=== PATIENT | male | born 1955 | race Caucasian/White ===

== ENCOUNTER 2017-03-18 09:37 | Outpatient (CLI) | payer OTHER ==
--- NOTE | 2017-03-18 11:37 | MRI Report ---
EXAM: MRI LUMBAR SPINE WITHOUT CONTRAST EXAM DATE: 03/18/2017 10:15 AM. CLINICAL HISTORY: Paresthesias in both feet. COMPARISON: None. TECHNIQUE: Multiplanar, multisequence T1-weighted and fluid-sensitive sequences of the lumbar spine f rom T12 to S1 without contrast. Other: None. FINDINGS: Spinal Cord: The conus terminates at L1. The conus medullaris and cauda equina are unremarkable. Alignment: Minimal degenerative retrolisthesis of L1 on L2. 4-5 mm L3 on L4 anterolisthesis secondary to bilateral L3 spondylolysis. 7-8 mm L4 on L5 spondylolisthesis secondary to bilateral L4 spondylolysis. Bone Marrow: Five vci-uut-hgcpiuq lumbar vertebral bodies are assumed. Degenerative endplate signal c hanges at multiple levels, most severe at L4-L5. Also notable at L3-L4. Disk Levels/Facets: T12-L1: Mild degenerative changes. No significant stenosis. L1-L2: Moderate degenerative disk disease and facet arthropathy. Broad-based bulge. Anterior marginal spurring. Mild stenosis of the central canal and foramina. L2-L3: No significant disk space narrowing. No disk herniation or significant stenosis. Uleu-qw-zhwbr ate right and moderate left-sided facet arthropathy. L3-L4: Moderate to severe degenerative disk disease and facet arthropathy. Hypertrophic degenerative changes are present left greater than right associated with the facets and chronic-appearing L3 pars defects. Prominent broad-based disk bulge with extension laterally with spurring into both foramina, which show moderate to severe deformity and stenosis. The central canal is patent. L4-L5: Severe degenerative disk disease. Moderate facet arthropathy. Prominent broad-based disk bulge with extension laterally into both foramina. Hypertrophic degenerative changes are seen associated w ith the chronic-appearing L4 pars defects. Patent central canal. Foraminal stenosis is severe on the right and moderate on the left. L5-S1: Mild degenerative disk disease. Minimal facet arthropathy. No focal disk herniation. Patent ce ntral canal and right foramen. Minimal foraminal narrowing on the left. Musculature: Mild diffuse posterior paraspinal muscle fatty atrophy. Other: Incompletely visualized abdominal aortic aneurysm measuring up to 7 cm transverse at the L3-L4 level. Incompletely visualized mildly expansile rounded T2 hyperintense lesions of the right kidney, possibl y cysts, but incompletely characterized on this study. IMPRESSION: 1. Abdominal aortic aneurysm up to 7 cm transverse. 2. Prominent chronic multilevel degenerative lumbar spinal spondylosis, most severe at the L3-L4 and L4-L5 levels. 3. No high-grade lumbar central canal stenosis. 4. Potentially significant degenerative foraminal stenosis bilaterally at L3-L4 and right worse than left at L4-L5. 5. In addition to chronic degenerative changes, spondylolisthesis from spondylolysis is present at th e L3-L4 and L4-L5 levels. 6. T2 hyperintense expansile kidney lesions on the right, potentially cysts, but incompletely charact erized with this study. As clinically warranted, this could be further characterized with other suppl emental imaging such as CT or renal ultrasound. Findings were communicated by telephone to the registered nurse Bossman, at 11 AM 03/18/2017. Comment: The following findings are so common in adults without low back pain that while we report th eir presence, they must be interpreted with caution and in the context of the clinical situation. (Re trace Gerard et al, Spine 2001) Prevalence of findings in patients without low back pain: Disk degeneration (any evidence): 92% Disk desiccation/T2 signal loss: 83% Disk height loss: 56% Disk bulge: 64% Disk protrusion: 32% Annular tear/high intensity zone: 38% [facility] Referring Provider Line: [phone] SITE ID: [id number]
== END 2017-03-18 09:38 | disposition home or self-care (01) ==
LOC: DI 09:37
PROVIDERS: ATTEND Nurse Practitioner Family
DX: M51.36 Other intervertebral disc degeneration, lumbar region (principal); M47.896 Other spondylosis, lumbar region; M43.16 Spondylolisthesis, lumbar region; I71.4 Abdominal aortic aneurysm, without rupture
CPT/HCPCS: 72148

== ENCOUNTER 2020-09-19 12:53 | Outpatient (CLI) | payer OTHER ==
[2020-09-19 13:42] VITALS: BP 119/75
--- NOTE | 2020-09-19 13:42 | SLEEP CARE CONSULTATION ---
Information from patient questionnaire entered by Kassie Garrison. I have reviewed and concur with the information entered by Kassie Garrison. This document represents the service I personally performed and the decisions made by me, Urvashi Stout ARNP. History of Present Illness Service Date and Time: 09/19/2020 1253 Reason for Visit: New patient, Previously diagnosed sleep apnea, sleep apnea on CPAP therapy Chief Complaint: reports: Other (Update supplies) Usual bedtime: 9 Time it takes to fall asleep: 10-15 Toss, Turn, or Twitch while sleeping: Yes Recalls having dreams: Yes Usually gets out of bed at: 6 Feels refreshed in the morning: Yes Morning headache: No Sleepy or fatigued during the day: No Ever fallen asleep while driving: No Takes day naps: Yes Dreams during day naps: No Prior sleep studies: Yes Year and Where: 2011 [facility] Additional HPI information: OLGA LIDIA PEREZ was diagnosed to have very severe, AHI 71.1, obstructive sleep apnea-hypopnea syndrome in 2011 at [facility]. He comes in to re-establish care for his CPAP therapy. He has been using his CPAP since 2012 nightly. He needs to be able to get supplies. - Parasomnia Symptoms Ever been unable to move upon waking from sleep: No Walks in sleep: No Talks in sleep: No Ever acted out dreams in sleep: No Ever felt weak in the knees when startled or emotional: No Bothered by creepy, crawly, restless sensations in legs: Yes Problems with memory or concentration: No CPAP Compliance Data - Data Reviewed with Patient Average duration of nightly device use: 7 hours 9 minutes Compliance rate %: 94.4 Current pressure setting (cmH2O): 14 Humidity settin Heated hose settin Average residual AHI: 7.3 Central apnea: 0.4 Obstructive apnea: 3.4 Hypopnea: 3.5 Average large leak: 14 minutes 18 seconds Compliance data discussion: He gets his supplies online. He uses a full face mask, ResMed Quattro Fx size large. He thinks an extra large may work better. Subjective Patient concerns: reports: air blowing in eyes (gets wet eyes in morning), mask leak noise. denies: aerophagia, mask discomfort, condensation in mask/hose, nasal congestion, dry mouth, nose, throat, epistaxis, other Observed to snore while using device: No Current pressure setting perceived as: comfortable On therapy, patient: reports: sleeping better, awakening more refreshed, being more awake and alert during the day, more rested overall. denies: drowsiness while driving Initial [place] Sleepiness Scale score: 3 (in 2020) Past Medical History Past Medical History: reports: Hypertension, Arthritis Social History The patient's occupation is a retiree. Patient is and lives in [place]. Have you smoked in the past 12 months: No Cigarettes per day (20/pack): 20 Years of smokin Quit date: 2016 Smoking Pack Years: 46.0 Alcohol use: No Caffeine use: Yes Caffeine amount and frequency: 1 cup tea, twice a day Family History Family history of sleep disordered breathing: No Allergies and Home Medications Drug allergies reviewed: Yes (NKDA) Home medication list reviewed: Yes Allergy and home medication list: Temisartan Atorvastatin Amlodipine Cymbalta Gabapentin Aspirin Multivitamin Review of Systems Cardiovascular: reports: high blood pressure Musculoskeletal: reports: joint pain (stiffness), back pain Physical Exam Blood Pressure: 119/75 Cuff size: wrist Heart Rate: 88 O2 Saturation: 92 Height: 6 ft 4 in Weight: 263 lb Body Mass Index: 32.0 BMI Classification: Obese Impression and Plan 1. Obstructive Sleep Apnea-Hypopnea Syndrome, very severe, with good treatment compliance and good apnea control. On CPAP therapy, the patient has better sleep quality and is more rested overall. The patients pressure will be changed to autoCPAP 15 cmH20 for elevation of residual AHI. Patient advised to contact me if pressure change is uncomfortable so that it can be adjusted. Goals for apnea control discussed. Patient would like to replace his old machine that is over 8 years old (it is his original machine) and update supplies. I will have my medical records coordinator inform of DME options. A DWO prescription will then be made. Patient advised to contact this office if further supply problems. Compliance guidelines for new device and follow up discussed. Patient's apnea severity and rationale for treatment to reduce apnea, improve sleep quality and reduce cardiovascular and cerebrovascular events was reviewed. I also reviewed the benefit of consistent device use of CPAP for hypertension. * Update machine * Transfer DME * Change auto CPAP pressure to 15 cmH2O * Notify me if snoring with mask or feeling that the pressure is too much or too little * Attempt to lose weight * Call this office if any problems using CPAP * Return for follow up one month after getting new machine, or sooner if concerns arise Counseling Topics: Spare mask, Weight loss health impact Visit Type: In Office Time Spent with Patient (minutes): 30 Provider Statement: I spent 100% of the Face to Face Visit with the patient with greater than 50% spent counseling the patient and coordination of care.
== END 2020-09-19 12:54 | disposition home or self-care (01) ==
LOC: SC 12:53
PROVIDERS: ATTEND Nurse Practitioner Family
DX: G47.33 Obstructive sleep apnea (adult) (pediatric) (principal); E66.9 Obesity, unspecified; Z68.32 Body mass index [BMI] 32.0-32.9, adult; Z87.891 Personal history of nicotine dependence
CPT/HCPCS: 99203; 99212

== ENCOUNTER 2020-11-13 13:12 | Outpatient (CLI) | payer OTHER ==
--- NOTE | 2020-11-13 13:38 | SLEEP CARE CONSULTATION ---
Information from patient questionnaire entered by Elana Maynard. I have reviewed and concur with the information entered by Elana Maynard. This document represents the service I personally performed and the decisions made by , Urvashi Stout ARNP. History of Present Illness Service Date and Time: 11/13/2020 1312 Previous diagnosis: Very Severe, Obstructive Sleep Apnea-Hypopnea Syndrome AHI: 71.1 (in 2011) Reason for follow up: first compliance after device update Equipment type: CPAP Equipment obtained from: Other ([facility]; getting supplies as needed) Mask style: Full face Backup mask available: Yes (old mask) Last cushion change: 1 week Prior sleep studies: Yes Year and Where: 2011 - [facility] Type of Sleep Study: Polysomnography HPI additional information: OLGA LIDIA PEREZ was diagnosed to have very severe, AHI 71.1, obstructive sleep apnea-hypopnea syndrome and returned today for CPAP therapy first compliance after updating device follow-up. CPAP Compliance Data - Data Reviewed with Patient Average duration of nightly device use: 7 hr 30 min Compliance rate %: 100 Current pressure setting (cmH2O): 16 Humidity settin Heated hose settin Average residual AHI: 3.0 Average large leak: 6 sec Subjective Patient concerns: denies: aerophagia, mask discomfort, air blowing in eyes, mask leak noise, condensation in mask/hose, nasal congestion, dry mouth, nose, throat, epistaxis, other Observed to snore while using device: No Current pressure setting perceived as: comfortable On therapy, patient: reports: sleeping better, awakening more refreshed, being more awake and alert during the day, more rested overall. denies: drowsiness while driving Initial [place] Sleepiness Scale score: 6 (in 2012) Current [place] Sleepiness Scale score: 6 Allergies and Home Medications Home medication list reviewed: Yes (no changes) Review of Systems Review of systems same as previous: Yes (no changes) Physical Exam Heart Rate: 82 O2 Saturation: 96 Height: 6 ft 4 in Weight: 265 lb Body Mass Index: 32.2 BMI Classification: Obese Impression and Plan 1. Obstructive Sleep Apnea-Hypopnea Syndrome, very severe, with excellent treatment compliance and good apnea control. On CPAP therapy, the patient has better sleep quality and is more rested overall. Patient is very satisfied with new CPAP and CPAP therapy. He denies any issues with CPAP mask or machine use. He states intention to continue CPAP use long-term. I advised her reports weight loss this year. Patient's apnea severity and rationale for treatment to reduce apnea, improve sleep quality and reduce cardiovascular and cerebrovascular events was reviewed. I also reviewed the benefit of consistent device use of CPAP for hypertension. * Continue auto CPAP pressure at 16 cmH2O * Notify me if snoring with mask or feeling that the pressure is too much or too little * Attempt to lose weight * Call this office if any problems using CPAP * Return for follow up in 1 year, or sooner if concerns arise Counseling Topics: Spare mask, Weight loss health impact Visit Type: In Office Time Spent with Patient (minutes): 10 Provider Statement: I spent 100% of the Face to Face Visit with the patient with greater than 50% spent counseling the patient and coordination of care.
== END 2020-11-13 13:13 | disposition home or self-care (01) ==
LOC: SC 13:12
PROVIDERS: ATTEND Nurse Practitioner Family
DX: G47.33 Obstructive sleep apnea (adult) (pediatric) (principal); E66.9 Obesity, unspecified; Z68.32 Body mass index [BMI] 32.0-32.9, adult
CPT/HCPCS: 99212

== ENCOUNTER 2021-01-08 10:09 | Emergency (ER) | payer OTHER ==
[2021-01-08 11:13] LABS: BASOPHILS # (AUTO) 0.1 10^3/uL (0.0-0.1); BASOPHILS % (AUTO) 1.3 %; EOSINOPHILS # (AUTO) 0.4 10^3/uL (0.0-0.7); EOSINOPHILS % (AUTO) 4.6 %; HCT - HEMATOCRIT 40.7 % (42.0-52.0); HGB - HEMOGLOBIN 13.5 g/dL (14.0-18.0); LYMPHOCYTES # (AUTO) 2.2 10^3/uL (1.5-3.5); MEAN CORPUSCULAR HEMOGLOBIN 33.8 pg (27.0-31.0); MEAN CORPUSCULAR HGB CONC 33.2 g/dL (32.0-36.0); MEAN CORPUSCULAR VOLUME 101.8 fL (80.0-94.0); MEAN PLATELET VOLUME 10.9 fL (7.4-11.4); MONOCYTES # (AUTO) 0.7 10^3/uL (0.0-1.0); MONOCYTES % (AUTO) 9.3 %; NEUTROPHILS # (AUTO) 4.2 10^3/uL (1.5-6.6); NEUTROPHILS % (AUTO) 55.5 %; PLT - PLATELET COUNT 198 10^3/uL (130-450); WHITE BLOOD COUNT 7.6 x10^3/uL (4.8-10.8)
[2021-01-08 11:25] LABS: ALBUMIN 4.3 g/dL (3.2-5.5); ALBUMIN/GLOBULIN RATIO 1.3 (1.0-2.2); BILIRUBIN,TOTAL 0.5 mg/dL (0.2-1.0); CALCIUM 9.5 mg/dL (8.5-10.3); CREATININE 1.5 mg/dL (0.6-1.2); POTASSIUM 4.5 mmol/L (3.5-5.0); TOTAL PROTEIN 7.7 g/dL (6.7-8.2)
[2021-01-08 12:17] LABS: CLARITY,URINE CLEAR (CLEAR)
[2021-01-08 12:18] LABS: BILIRUBIN,URINE NEGATIVE (NEGATIVE); GLUCOSE, URINE (UA) NEGATIVE (NEGATIVE); KETONES,URINE (UA) NEGATIVE (NEGATIVE); LEUKOCYTE ESTERASE, URINE NEGATIVE (NEGATIVE); NITRITE,URINE NEGATIVE (NEGATIVE); OCCULT BLOOD,URINE SMALL (NEGATIVE); PH,URINE 6.5 PH (5.0-7.5); PROTEIN,URINE NEGATIVE (NEGATIVE); UROBILINOGEN,URINE 0.2 (NORMAL) E.U./dL (NORMAL)
[2021-01-08 12:29] LABS: BACTERIA,URINE Rare /HPF (None Seen); RBC,URINE 0-5 /HPF (0-5); SQUAMOUS EPITHELIAL CELL,UR RARE Squamous (<= Few); WBC,URINE 0-3 /HPF (0-3)
--- NOTE | 2021-01-08 12:39 | ED Physician Documentation ---
History of Present Illness - Stated complaint Stated Complaint: BACK PX - Chief complaint Chief Complaint: Abd Pain - History obtained from History obtained from: Patient, Family - History of Present Illness Pain level max: 5 Pain level now: 1 - Additonal information Additional information: Patient is a 65-year-old male who presents to the emergency department with his today. He states that he has had intermittent left flank pain for the past several days. Concerned about possible kidney stone. Has seen his doctor and was told he had a "clear urinalysis". He states that the pain is a max 5 out of 10, currently 1 out of 10. He states that his doctor told him to come to the emergency department because his creatinine had gone from 1.1-1.5 on outpatient blood draw. His doctor also stated that his blood sugar was "high". No nausea or vomiting. No diarrhea. No constipation. Nothing makes it better or worse. No fevers. No chills. No coughing. Review of Systems Ten Systems: 10 systems reviewed and negative Constitutional: denies: Fever, Chills GI: denies: Vomiting, Diarrhea Skin: denies: Rash Musculoskeletal: denies: Neck pain, Back pain Neurologic: denies: Headache PD PAST MEDICAL HISTORY - Past Medical History Cardiovascular: Hypertension, High cholesterol Respiratory: Sleep apnea, CPAP use Endocrine/Autoimmune: None GI: None : None HEENT: None Psych: None Musculoskeletal: None Derm: None - Past Surgical History Past Surgical History: No - Present Medications Home Medications: Ambulatory Orders Medication Instructions Recorded Confirmed Amlodipine Besylate 10 mg PO DAILY 02/05/15 02/05/15 Aspirin [Aspir 81] 81 mg PO DAILY 02/05/15 02/05/15 Atorvastatin [Lipitor] 20 mg PO DAILY 02/05/15 02/05/15 Multivitamin [Multivitamins] 1 tab PO DAILY 02/05/15 02/05/15 lisinopriL [Lisinopril] 10 mg PO DAILY 02/05/15 02/05/15 HYDROcod/ACETAM 5/325 [[place] 5/325] 1 - 2 ea PO Q6H PRN #14 tablet 01/08/21 Ibuprofen [Motrin] 800 mg PO Q8H PRN #30 tablet 01/08/21 Ondansetron Odt [Zofran] 4 mg TL Q6H PRN #10 tablet 01/08/21 - Allergies Allergies/Adverse Reactions: Allergies Allergy/AdvReac Type Severity Reaction Status Date / Time No Known Drug Allergies Allergy Verified 02/05/15 22:39 - Social History Does the pt smoke?: Yes Smoking Status: Current every day smoker Does the pt drink ETOH?: No Does the pt have substance abuse?: No - Immunizations Immunizations are current?: Yes - POLST Patient has POLST: No PD ED PE NORMAL - Vitals Vital signs reviewed: Yes - General General: Alert and oriented X 3, No acute distress - HEENT HEENT: Moist mucous membranes - Neck Neck: Supple, no meningeal sign - Cardiac Cardiac: RRR - Respiratory Respiratory: No respiratory distress, Clear bilaterally - Abdomen Abdomen: Soft, Non tender, Non distended - Back Back: No CVA TTP, No spinal TTP - Derm Derm: Warm and dry - Extremities Extremities: No edema - Neuro Neuro: Alert and oriented X 3 - Psych Psych: Normal mood, Normal affect Results - Vitals Vitals: Vital Signs - 24 hr 01/08/21 01/08/21 01/08/21 10:22 12:26 14:00 Temperature 36.9 C Heart Rate 67 65 68 Respiratory 16 17 16 Rate Blood Pressure 132/74 H 124/81 H 125/84 H O2 Saturation 99 93 93 Oxygen O2 Source Room air - Labs Labs: Laboratory Tests 01/08/21 01/08/21 01/08/21 11:04 11:04 11:49 WBC 7.6 RBC 4.00 L Hgb 13.5 L Hct 40.7 L MCV 101.8 H MCH 33.8 H MCHC 33.2 RDW 13.0 Plt Count 198 MPV 10.9 Neut # (Auto) 4.2 Lymph # (Auto) 2.2 Maury # (Auto) 0.7 Eos # (Auto) 0.4 Baso # (Auto) 0.1 Absolute Nucleated RBC 0.00 Nucleated RBC % 0.0 Sodium 138 Potassium 4.5 Chloride 98 L Carbon Dioxide 31 Anion Gap 9.0 BUN 22 H Creatinine 1.5 H Estimated GFR (MDRD) 47 L Glucose 110 H Calcium 9.5 Total Bilirubin 0.5 AST 24 ALT 24 Alkaline Phosphatase 88 Total Protein 7.7 Albumin 4.3 Globulin 3.4 Albumin/Globulin Ratio 1.3 Lipase 24 Urine Color YELLOW Urine Clarity CLEAR Urine pH 6.5 Ur Specific [place] 1.010 Urine Protein NEGATIVE Urine Glucose (UA) NEGATIVE Urine Ketones NEGATIVE Urine Occult Blood SMALL H Urine Nitrite NEGATIVE Urine Bilirubin NEGATIVE Urine Urobilinogen 0.2 (NORMAL) Ur Leukocyte Esterase NEGATIVE Urine RBC 0-5 Urine WBC 0-3 Ur Squamous Epith Cells RARE Squamous Urine Bacteria Rare Ur Microscopic Review INDICATED Urine Culture Comments NOT INDICATED - Rads (name of study) CT abdomen pelvis Radiology: Final report received, EMP read contemporaneously, See rad report PD MEDICAL DECISION MAKING - ED course Complexity details: reviewed results, re-evaluated patient, considered differential, d/w patient, d/w family ED course: Patient is a 65-year-old male with a 5 mm left UVJ stone. Mild elevation in his creatinine. Pain well controlled here. No fevers. No evidence of UTI. No evidence of sepsis. The stone should likely pass on its own. We will have him follow-up with his doctor for further care. Patient counseled regarding signs and symptoms for which I believe and urgent re-evaluation would be necessary. Patient with good understanding of and agreement to plan and is comfortable go ing home at this time This document was made in part using voice recognition software. While efforts are made to proofread this document, sound alike and grammatical errors may occur. Patient states he has had multiple cardiac stress test and angiograms and knows about the atherosclerosis of the coronary vasculature. IMPRESSION: 1. 5 mm left UVJ stone causing mykn-su-tkbouhft left-sided hydronephrosis. 2. Mild left perinephric stranding and slightly decreased left renal enhancement which could be due to obstructive uropathy versus superimposed urinary tract infection. Recommend correlation with urinalysis data. 3. Multiple bilateral renal cysts. 4. Colonic diverticulosis without evidence of diverticulitis. 5. Atherosclerosis including the coronary vasculature. Departure - Departure Disposition: Home, Self Care Clinical Impression: Ureteral calculus, left Condition: Good Instructions: ED Stone Renal W Colic Follow-Up: KALEIGH PALMER MD [Primary Care Provider] - Prescriptions: Ibuprofen [Motrin] 800 mg PO Q8H PRN #30 tablet PRN Reason: PAIN &/OR FEVER HYDROcod/ACETAM 5/325 [[place] 5/325] 1 - 2 ea PO Q6H PRN #14 tablet PRN Reason: Pain Ondansetron Odt [Zofran] 4 mg TL Q6H PRN #10 tablet PRN Reason: Nausea / Vomiting Comments: Follow up with your doctor for further care. Make sure you are drinking plenty of water as this will help the stone pass. Return for uncontrolled pain, vomiting or fevers. Your doctor may want to refer you to a urologist as well. I am prescribing a short course of narcotic pain medication for you. These are potentially dangerous and addictive medications that should be used carefully. These medications may constipate you. Take an voww-nri-pkaleuz stool softener (docusate) twice daily with plenty of water while taking these medications. If you go 24 hours without a bowel movement, take tlyb-nkv-hfauesz miralax, per package instructions. Do not drink or drive while taking these medications. If you received narcotic or sedating medications while in the emergency department, do not drive for 24 hours. Store this medication in a safe, secure place and out of reach of children. It is a violation of federal law to give or sell this medication to another person or to use in a manner other than prescribed. The ED will not refill narcotic prescriptions, including prescriptions lost or stolen. To dispose of unwanted medications: 1. [facility] [address] in [place] has a medication drop box. They accept prescription medications (in pill form) Thursday through Thursday 9:00 a.m. to 5:00 p.m. 2. [facility] [employer] accepts prescription medications (in pill form only) for disposal year round. Call for more information. 3. Contact the [facility] for the next [facility] sponsored prescription drug collection event. , [phone], or x [phone]; CT scan results: 1. 5 mm left UVJ stone causing xzqs-xr-arrvbrbb left-sided hydronephrosis. 2. Mild left perinephric stranding and slightly decreased left renal enhancement which could be due to obstructive uropathy versus superimposed urinary tract infection. Recommend correlation with urinalysis data. 3. Multiple bilateral renal cysts. 4. Colonic diverticulosis without evidence of diverticulitis. 5. Atherosclerosis including the coronary vasculature. Discharge Date/Time: 01/08/21 14:26
[2021-01-08] MEDS ORDERED: IOPAMIDOL-300 100 ML VIAL ONE (12:44)
[2021-01-08] MEDS: SODIUM CHLORIDE 0.9% 1,000 ML IV STA ×2 (13:03)
[2021-01-08] MEDS: IOPAMIDOL-300 100 ML VIAL IVP ONE (13:38)
--- NOTE | 2021-01-08 13:44 | CT Report ---
PROCEDURE: Abdomen/Pelvis W INDICATIONS: LLQ abd pain CONTRAST: IV CONTRAST: Isovue 300 ml: 100 PO CONTRAST: *NO PO CONTRAST TECHNIQUE: After the administration of intravenous contrast, 5 mm thick sections acquired from the diaphragms to the symphysis. 5 mm thick coronal and sagittal reformats were acquired. For radiation dose reducti on, the following was used: automated exposure control, adjustment of mA and/or kV according to meera ent size. COMPARISON: None. FINDINGS: Image quality: Excellent. ABDOMEN: Lung bases: Atelectasis in the left lung base. Heart size is normal. Atherosclerotic calcifications n oted in the visualized coronary vascular tree. Solid organs: Liver and spleen are normal in size and enhancement. Gallbladder is contracted, but w ithin normal limits. Biliary system is non dilated. Pancreas enhances normally. No adrenal nodules . Multiple bilateral renal cysts. There is a 5 mm stone at the left UVJ causing mild to moderate left -sided hydronephrosis. There is slightly decreased left renal enhancement and mild left perinephric s tranding which could be due to obstructive uropathy versus superimposed infection. Peritoneum and bow el: Bowel loops demonstrate normal wall thickness and caliber. Scattered colonic diverticuli withou t evidence of diverticulitis. No free fluid or air. The appendix is normal. Nodes and vessels: No retroperitoneal or mesenteric adenopathy by size criteria. Aorta and inferior vena cava are normal in size. Scattered atherosclerotic calcifications are noted in the abdominal an d pelvic vasculature. Miscellaneous: No ventral hernias. PELVIS: Genitourinary: Bladder wall thickness is normal. Miscellaneous: No inguinal hernias or adenopathy. Bones: No suspicious bony lesions. No vertebral body compression fractures. Spine degenerative dis c disease and facet arthropathy are noted. Grade 1 L3-L4 and L4-L5 degenerative spondylolisthesis. IMPRESSION: 1. 5 mm left UVJ stone causing vcsk-jn-mwjtahqc left-sided hydronephrosis. 2. Mild left perinephric stranding and slightly decreased left renal enhancement which could be due t o obstructive uropathy versus superimposed urinary tract infection. Recommend correlation with urinal ysis data. 3. Multiple bilateral renal cysts. 4. Colonic diverticulosis without evidence of diverticulitis. 5. Atherosclerosis including the coronary vasculature. Reviewed by: Mya De La O MD, PhD on 01/08/2021 1:42 PM PDT Approved by: Mya De La O MD, PhD on 01/08/2021 1:42 PM PDT Station ID: [id number]
[2021-01-08 14:11] VITALS: BP 125/84
== END 2021-01-08 14:26 | disposition home or self-care (01) ==
LOC: ED 10:09
DX: N13.2 Hydronephrosis with renal and ureteral calculous obstruction (principal); I10 Essential (primary) hypertension; F17.200 Nicotine dependence, unspecified, uncomplicated
CPT/HCPCS: 36415; 74177; 80053; 81001; 83690; 85025; 99284; Q9967; 81003; 87086

== ENCOUNTER 2022-07-08 09:15 | Outpatient (CLI) | payer MEDICARE, OTHER ==
[2022-07-08 10:21] VITALS: BP 124/72
--- NOTE | 2022-07-08 10:21 | SLEEP CARE CONSULTATION ---
Information from patient questionnaire entered by Светлана Black. I have reviewed and concur with the information entered by Светлана Black. This document represents the service I personally performed and the decisions made by me, Urvashi Stout ARNP. History of Present Illness Service Date and Time: 07/08/2022 09 Previous diagnosis: Very Severe, Obstructive Sleep Apnea-Hypopnea Syndrome AHI: 71.1 (in 2011) Reason for follow up: annual (LAST SEEN 10/2020) Accompanied by: Spouse Equipment type: CPAP ([employer] Dreamstation 2 s/u 09/2020) Equipment obtained from: Other ([facility]; getting supplies as needed) Mask style: Full face Backup mask available: Yes (old mask) Last cushion change: 4 weeks Prior sleep studies: Yes Year and Where: 2011 - [facility] Type of Sleep Study: Polysomnography HPI additional information: OLGA LIDIA PEREZ was diagnosed to have very severe, AHI 71.1, obstructive sleep apnea-hypopnea syndrome and returned with spouse today for CPAP therapy annual follow-up. Sleep Study - Results Type of Sleep Study: Polysomnography [facility] Yes [facility] Compliance Data - Data Reviewed with Patient Average duration of nightly device use: 8 HRS 1 MIN 12SEC Compliance rate %: 97.2 (01/07/22-07/05/22; 173/180 days used) Current pressure setting (cmH2O): 17 Average residual AHI: 1.4 Central apnea: 0.3 Obstructive apnea: 0.3 Average large leak: 22 minutes 19 secs Subjective Missed days of use due to: reports: other (power outage) Patient concerns: denies: aerophagia, mask discomfort, air blowing in eyes, mask leak noise, condensation in mask/hose, nasal congestion, dry mouth, nose, throat, epistaxis Observed to snore while using device: No Current pressure setting perceived as: comfortable On therapy, patient: reports: sleeping better, awakening more refreshed, being more awake and alert during the day, more rested overall. denies: drowsiness while driving Initial [place] Sleepiness Scale score: 6 (in 2011) Current [place] Sleepiness Scale score: 5 (07/08/22) Allergies and Home Medications Drug allergies reviewed: Yes (NKDA) Home medication list reviewed: Yes (no changes) Review of Systems Review of systems same as previous: Yes (no changes) Physical Exam Vital signs obtained and entered by: СВЕТЛАНА Shore MA Blood Pressure: 124/72 (LEFT ARM) Cuff size: regular Heart Rate: 79 O2 Saturation: 93 Height: 6 ft 3 in Weight: 265 lb Body Mass Index: 33.1 BMI Classification: Obese Impression and Plan 1. Obstructive Sleep Apnea-Hypopnea Syndrome, very severe, with good treatment compliance and good apnea control. On CPAP therapy, the patient has better sleep quality and is more rested overall. Patient states he has a love-hate relationship with his CPAP but is committed to using it nightly. Patient would like to try a nasal mask but feels he needs the full face to cover his mouth. I explained to him that there are hybrid fullface mask that go under the nose like a nasal cushion but still cover his mouth. I showed him a couple of examples in the office and he voiced that he would like to try one of these masks. I will add a mask refitting for a hybrid full facemask to his supplies update prescription. Patient has significant improvement of his sleep apnea and is satisfied with current CPAP therapy. Patient denies problems with oral dryness, nasal congestion, epistaxis, skin irritation or aerophagia. Patient's apnea severity and rationale for treatment to reduce apnea, improve sleep quality and reduce cardiovascular and cerebrovascular events was reviewed. I also reviewed the benefit of consistent device use of CPAP for hypertension. 2. Obesity, unspecified. Currently patients BMI is 33.1. Obesity increases the risk of apnea, CPAP pressure requirements and overall health risks especially cardiovascular and diabetes. Thus patient is advised to lose weight. * Continue CPAP pressure at 17 cmH2O * Update supplies * Mask refitting for full face hybrid mask * Notify me if snoring with mask or feeling that the pressure is too much or too little * Attempt to lose weight * Call this office if any problems using CPAP * Return for follow up in 1 year, or sooner if concerns arise Counseling Topics: Spare mask, Weight loss health impact Visit Type: In Office Other Participants: Spouse/Significant Other Time Spent with Patient (minutes): 20 Provider Statement: I spent 100% of the Face to Face Visit with the patient with greater than 50% spent counseling the patient and coordination of care.
== END 2022-07-08 09:16 | disposition home or self-care (01) ==
LOC: SC 09:15
PROVIDERS: ATTEND Nurse Practitioner Family
DX: G47.33 Obstructive sleep apnea (adult) (pediatric) (principal); E66.9 Obesity, unspecified; Z68.33 Body mass index [BMI] 33.0-33.9, adult
CPT/HCPCS: 99213; G0463; 99212

== ENCOUNTER 2022-09-16 14:02 | Outpatient (CLI) | payer MEDICARE, OTHER ==
--- NOTE | 2022-09-16 17:07 | XRAY Report ---
PROCEDURE: Chest 2 View X-Ray INDICATIONS: CHEST CONGESTION TECHNIQUE: 2 views of the chest were acquired. COMPARISON: Chest radiographs 02/05/2015 FINDINGS: Surgical changes and devices: None. Lungs and pleura: Marked elevation of the left hemidiaphragm present as before. Patchy left basilar opacities present, probably atelectasis. No pleural effusion or pneumothorax. Mediastinum: Cardiac silhouette is partially obscured, mediastinal contour is not overtly changed si nce before. Bones and chest wall: No suspicious bony lesions. Overlying soft tissues appear unremarkable. IMPRESSION: Left basilar opacity is present, likely atelectasis in the setting of left hemidiaphragm elevation ho wever aspiration or pneumonia are difficult to fully exclude. Reviewed by: Umer Borden MD on 09/16/2022 5:06 PM PDT Approved by: Umer Borden MD on 09/16/2022 5:06 PM PDT Station ID: [id number]
== END 2022-09-16 14:03 | disposition home or self-care (01) ==
LOC: DI 14:02
PROVIDERS: ATTEND Internal Medicine
DX: R91.8 Other nonspecific abnormal finding of lung field (principal); J44.1 Chronic obstructive pulmonary disease with (acute) exacerbation

== ENCOUNTER 2023-07-08 09:48 | Outpatient (CLI) | payer MEDICARE, OTHER ==
--- NOTE | 2023-07-08 10:07 | Sleep Patient Instructions ---
Sleep Center Visit Summary - Patient Visit Information Reason for Visit: Annual Visit - Patient Instructions Additional Instructions: You will continue with CPAP therapy with pressure changed to 17-20 cmH2O. A supply prescription will be updated with your DME. We encourage you to continue to try to lose weight. Please follow up with the sleep care office in 1-2 months. - Clinic Information Contact: [facility] [address] [place] [address] [email or web address] T: [phone]
--- NOTE | 2023-07-08 10:12 | SLEEP CARE CONSULTATION ---
Information from patient questionnaire entered by Светлана Black. I have reviewed and concur with the information entered by Светлана Black. This document represents the service I personally performed and the decisions made by me, Urvashi Stout ARNP. History of Present Illness Service Date and Time: 07/08/2023 0948 Previous diagnosis: Very Severe, Obstructive Sleep Apnea-Hypopnea Syndrome AHI: 71.1 (in 2011) Reason for follow up: annual (LAST SEEN 07/2022) Equipment type: CPAP ([employer] Dreamstation 2 s/u 09/2020) Equipment obtained from: Other ([facility]; getting supplies as needed) Mask style: Nasal pillows Backup mask available: Yes Last cushion change: couple weeks [facility]: Yes [facility] Type of Sleep Study: Polysomnography HPI additional information: OLGA LIDIA PEREZ was diagnosed to have very severe, AHI 71.1, obstructive sleep apnea-hypopnea syndrome and returned today for CPAP therapy annual follow-up. Sleep Study - Results Type of Sleep Study: Polysomnography Prior sleep studies: Yes [facility] Compliance Data - Data Reviewed with Patient Average duration of nightly device use: 8 HRS 12 MINS 56 SECS Compliance rate %: 98.4 (07/05/22-; 361/365 days used) Current pressure setting (cmH2O): 17 Average residual AHI: 11 Central apnea: 3.8 Obstructive apnea: 5.7 Hypopnea: 1.5 Average large leak: 15 mins 36 secs Subjective Patient concerns: reports: mask leak noise, dry mouth, nose, throat (occasional when mouth comes open). denies: aerophagia, mask discomfort, air blowing in eyes, condensation in mask/hose, nasal congestion, epistaxis Observed to snore while using device: No Current pressure setting perceived as: comfortable On therapy, patient: reports: sleeping better, awakening more refreshed, being more awake and alert during the day, more rested overall. denies: drowsiness while driving Initial [place] Sleepiness Scale score: 6 (in 2011) Current [place] Sleepiness Scale score: 7 (07/08/23) Allergies and Home Medications Known drug allergies: No Drug allergies reviewed: Yes Home medication list reviewed: Yes (no changes) Allergy and home medication list: Allergies No Known Drug Allergies Allergy (Verified 07/06/23 10:22) Review of Systems Review of systems same as previous: Yes (NO CHANGE) Physical Exam Vital signs obtained and entered by: СВЕТЛАНА Shore MA Blood Pressure: 141/90 (LEFT ARM) Cuff size: regular Heart Rate: 65 O2 Saturation: 94 Height: 6 ft 3 in Weight: 254 lb 3.2 oz Weight change since last visit: 11 lb loss Body Mass Index: 31.7 BMI Classification: Obese Impression and Plan 1. Obstructive Sleep Apnea-Hypopnea Syndrome, very severe, with good treatment compliance and fair apnea control with elevated residual AHI. On CPAP therapy, the patient has better sleep quality and is more rested overall. Patient has significant improvement of their sleep apnea but treatment is mildly ineffective with an elevated residual AHI. The patients pressure will be changed to autoCPAP 17-20 cmH20 for elevation of residual AHI. Patient advised to contact me if pressure change is uncomfortable so that it can be adjusted. Goals for apnea control discussed. Patient's apnea severity and rationale for treatment to reduce apnea, improve sleep quality and reduce cardiovascular and cerebrovascular events was reviewed. I also reviewed the benefit of consistent device use of CPAP for hypertension. 2. Obesity, unspecified. Currently patients BMI is 31.7. Obesity increases the risk of apnea, CPAP pressure requirements and overall health risks especially cardiovascular and diabetes. Thus patient is advised to continue to try to lose weight. * Change auto CPAP pressure to 17-20 cmH2O * Update supply prescription * Notify me if snoring with mask or feeling that the pressure is too much or too little * Attempt to lose weight * Call this office if any problems using CPAP * Return for follow up in 1-2 months, or sooner if concerns arise Counseling Topics: Spare mask, Weight loss health impact Prescriptions: Device supplies Follow up with Sleep Care in: 1-2 months Visit Type: In Office Time Spent with Patient (minutes): 21 Provider Statement: I spent 100% of the Face to Face Visit with the patient with greater than 50% spent counseling the patient and coordination of care.
[2023-07-08 10:16] VITALS: BP 141/90; O2SAT 94
== END 2023-07-08 09:49 | disposition home or self-care (01) ==
LOC: SC 09:48
PROVIDERS: ATTEND Nurse Practitioner Family
DX: G47.33 Obstructive sleep apnea (adult) (pediatric) (principal); E66.9 Obesity, unspecified; Z68.31 Body mass index [BMI] 31.0-31.9, adult
CPT/HCPCS: 99213; G0463; 99212

== ENCOUNTER 2023-09-09 09:44 | Outpatient (CLI) | payer MEDICARE, OTHER ==
--- NOTE | 2023-09-09 10:26 | Sleep Patient Instructions ---
Sleep Center Visit Summary - Patient Visit Information Reason for Visit: 2-month follow-up - Patient Instructions Additional Instructions: You were here for follow up of CPAP therapy. You will be continued on CPAP therapy with pressure at 19-20 cmH2O. Please let us know if the pressure change is uncomfortable and we can make further adjustments of the pressure. You should follow up with sleep care in 12 months. You may contact us sooner for any questions or concerns. - Clinic Information Contact: [facility] [address] [place] [id number] [email or web address] T: [phone]
--- NOTE | 2023-09-09 10:29 | SLEEP CARE CONSULTATION ---
Information from patient questionnaire entered by Carlyn Black. I have reviewed and concur with the information entered by Carlyn Black. This document represents the service I personally performed and the decisions made by me, Urvashi Stout ARNP. History of Present Illness Service Date and Time: 09/09/2023 0944 Previous diagnosis: Very Severe, Obstructive Sleep Apnea-Hypopnea Syndrome AHI: 71.1 (in 2011) Reason for follow up: other (2 MONTH F/U) Equipment type: CPAP ([employer] Dreamstation 2 s/u 09/2020) Equipment obtained from: Other ([facility]; getting supplies as n eeded) Mask style: Full face Backup mask available: Yes (old mask) Last cushion change: couple weeks [facility]: Yes [facility] Type of Sleep Study: Polysomnography HPI additional information: OLGA LIDIA PEREZ was diagnosed to have very severe, AHI 71.1, obstructive sleep apnea-hypopnea syndrome and returned today for CPAP therapy two month follow-up. Sleep Study - Results Type of Sleep Study: Polysomnography Prior sleep studies: Yes [facility] Compliance Data - Data Reviewed with Patient Average duration of nightly device use: 8 HRS 22 MINS 23 SEC Compliance rate %: 91.7 (07/07/23-09/04/23; 58-60 days used) Current pressure setting (cmH2O): 17-20 (median 17.7, avg 19.7, max 20) Average residual AHI: 7.9 Central apnea: 3.2 Obstructive apnea: 3.4 Hypopnea: 1.6 Average large leak: 5 mins 14 secs Subjective Patient concerns: denies: aerophagia, mask discomfort, air blowing in eyes, mask leak noise, condensation in mask/hose, nasal congestion, dry mouth, nose, throat, epistaxis Observed to snore while using device: No Current pressure setting perceived as: comfortable On therapy, patient: reports: sleeping better, awakening more refreshed, being more awake and alert during the day, more rested overall. denies: drowsiness while driving Initial [place] Sleepiness Scale score: 6 (in 2011) Current [place] Sleepiness Scale score: 4 Allergies and Home Medications Known drug allergies: No Drug allergies reviewed: Yes Home medication list reviewed: Yes (no changes) Allergy and home medication list: Allergies No Known Drug Allergies Allergy (Verified 09/07/23 09:06) Review of Systems Review of systems same as previous: Yes (no changes) Physical Exam Vital signs obtained and entered by: URVASHI GANN Blood Pressure: 139/83 Cuff size: long (right arm) Heart Rate: 60 O2 Saturation: 94 Height: 6 ft 3 in Weight: 251 lb 12.8 oz Body Mass Index: 31.4 BMI Classification: Obese Impression and Plan 1. Obstructive Sleep Apnea-Hypopnea Syndrome, very severe, with good treatment compliance and fair apnea control. On CPAP therapy, the patient has better sleep quality and is more rested overall. He has liked the pressure change and has significant improvement of his sleep apnea however it is still slightly ineffective with an elevated residual AHI at 7.9. The patients pressure will be changed to autoCPAP 19-20 cmH20 for elevation of residual AHI. Patient adv ised to contact me if pressure change is uncomfortable so that it can be adjusted. Goals for apnea control discussed. Patient's pressure setting is still not optimal to control sleep apnea. I advised patient that a titration study will be next step to determine a more optimal pressure setting. Patient would like to hold off on the titration study since he feels the pressure is comfortable and he is getting good sleep. I advised him to come back in if he notices an increase in his AHI residual on his machine. We may need to do a titration study at that time and he voiced understanding and agreement. Patient's apnea severity and rationale for treatment to reduce apnea, improve sleep quality and reduce cardiovascular and cerebrovascular events was reviewed. I also reviewed the benefit of consistent device use of CPAP for hypertension. 2. Obesity, unspecified. Currently patients BMI is 31.4. Obesity increases the risk of apnea, CPAP pressure requirements and overall health risks especially cardiovascular and diabetes. Thus patient is advised to lose weight. * Change auto CPAP pressure to 19-20 cmH2O * Notify me if snoring with mask or feeling that the pressure is too much or too little * Attempt to lose weight * Call this office if any problems using CPAP * Return for follow up in 12 months, or sooner if concerns arise Adjust device pressure to (cmH2O): 19-20 Counseling Topics: Spare mask, Weight loss health impact Follow up with Sleep Care in: 1 year Visit Type: In Office Time Spent with Patient (minutes): 20 Provider Statement: I spent 100% of the Face to Face Visit with the patient with greater than 50% spent counseling the patient and coordination of care.
[2023-09-09 10:37] VITALS: BP 139/83; O2SAT 94
== END 2023-09-09 09:45 | disposition home or self-care (01) ==
LOC: SC 09:44
PROVIDERS: ATTEND Nurse Practitioner Family
DX: G47.33 Obstructive sleep apnea (adult) (pediatric) (principal); E66.9 Obesity, unspecified; Z68.31 Body mass index [BMI] 31.0-31.9, adult
CPT/HCPCS: 99213; G0463; 99212